=== PATIENT | female | born 1945 | race Caucasian/White ===

== ENCOUNTER 2017-01-07 15:43 | Observation (INO) | payer OTHER ==
[~2017-01-07] VITALS: Ht 170.2 cm; Wt 63.5 kg
[2017-01-07 19:15] VITALS: BP 147/84; PULSE 76; TEMP 36.6; O2SAT 99
[2017-01-07] MEDS ORDERED: POLYETHYLENE (MIRALAX) 17 GM PACK PO PRN (21:00)
[2017-01-07] MEDS ORDERED: ONDANSETRON INJ 2 MG/ML 2 ML VIAL IV PRN (21:00)
--- NOTE | 2017-01-07 21:07 | History and Physical ---
History & Physical Date & Time of Service: Jan 07, 2017 at 21:04 Chief Complaint: Hypoglycemia, Weight Loss Primary Care Physician: Lana Gregg History of Present Illness Source: patient 71-year-old female with a past medical history of diabetes mellitus, arthritis, hypothyroidism status post thyroidectomy, status post gastric bypass surgery presented to the hospital via a direct admit for persistent hypoglycemia. Per patient she had been feeling weak and has not been able to maintain her blood sugar for a few weeks. She had not been using her medication but had noticed that her blood sugars had been dropping. She stated that her blood sugars were in the range of 20s to 30s on some occasions at which time she felt shaky, had blurry vision and was diaphoretic. This would resolve on drinking juice or Soda. She stated that she had occasions when her blood sugar had dropped to 15 or lower. She states that she hadn't been eating much due to a lack of appetite and has been nibbling on fruit sporadically throughout the day. At the outside hospital her blood sugar was 42, magnesium was 1.4, alk phosphatase was 165, TSH was 0.11 Past Medical/Surgical History Past medical history: Diabetes, incontinence, arthritis, hypothyroidism Past surgical history: Appendectomy, cholecystectomy, hysterectomy, gastric bypass Social History Housing status: lives alone Allergies Coded Allergies: Adhesives (Verified Allergy, Intermediate, RASH, 01/07/17) Iodine (Verified Allergy, Intermediate, RASH, 01/07/17) Home Medications Scheduled Cyanocobalamin (Vitamin B-12 1000 Mcg), 1,000 MCG IM DIRECTED Cyclobenzaprine Hcl (Flexeril), 5 MG PO TID Ergocalciferol (Vitamin D 76229 Unit), 1 TAB PO WK Esomeprazole Magnesium (Nexium), 40 MG PO DAILY Furosemide (Lasix), 20 MG PO DAILY Levothyroxine Sodium (Levothyroxine Sodium), 1 TAB PO DAILY Montelukast Sodium (Montelukast Sodium), 1 TAB PO DAILY Nortriptyline (Pamelor), 150 MG PO HS Propranolol Hcl (Propranolol Hcl Er), 1.5 CAP PO HS Ranitidine Hcl (Ranitidine Hcl), 1 CAP PO DAILY Tolterodine Tartrate (Detrol LA), 1 CAP PO DAILY Scheduled PRN Carisoprodol (Soma), 1 TAB PO TID PRN for Pain Review of Systems Constitutional: No fever, No chills ENT: No hearing loss Respiratory: No cough, No sputum, No shortness of breath Cardiovascular: No chest pain Abdomen: No pain, No nausea, No vomiting, No diarrhea Genitourinary - Female: No dysuria, No urinary frequency, No urinary urgency Neurologic: No memory loss, No paralysis Physical Exam Vital Signs Date Time Temp Pulse Resp B/P (MAP) Pulse Ox O2 Delivery O2 Flow Rate FiO2 01/07/17 19:15 36.6 76 18 147/84 (105) 99 Room Air General Appearance: WD/WN, no apparent distress Head: normocephalic Eyes: normal inspection ENT: hearing grossly normal Neck: supple Respiratory/Chest: chest non-tender, lungs clear, normal breath sounds, no respiratory distress, no accessory muscle use Cardiovascular: regular rate, rhythm, no murmur Abdomen/GI: normal bowel sounds, non tender, soft Neurologic/Psych: alert, normal mood/affect, oriented x 3 Skin: + pertinent finding (generalized tanning from tanning beds) Diagnostics Laboratory Results Results Past 24 Hours Test 01/07/17 20:01 Range/Units Bedside Glucose 44 70-90 mg/dl Impression Assessment and Plan 71-year-old female with a past medical history of diabetes mellitus, arthritis, hypothyroidism status post thyroidectomy, status post gastric bypass surgery presented to the hospital via a direct admit for persistent hypoglycemia. It is very likely her hypoglycemia is secondary to decreased oral intake however her blood sugar keeps dropping sporadically Persistent hypoglycemia: Decreased by mouth intake vs endogenous hyperinsulinism vs glipizide side effect vs islet cell hyperplasia post gastric bypass - Blood sugar on arrival 44 -->157-->119-->100-->96 - Hold metformin and glipizide - Monitor blood sugars every 1-2 hours and start D5W if persistently low - Check hemoglobin A1c GERD: - Continue Nexium and ranitidine Hypothyroidism - Continue Synthroid Incontinence: - Continue Detrol Insomnia: - Continue nortriptyline Migraine headaches: - Propranolol as needed DO NOT RESUSCITATE DVT prophylaxis: Heparin subcutaneous Disposition: Monitor blood sugars Resident Physician Supervision Note: Pt seen/examined independently. I discussed the case with the resident and agree with the findings and plan as documented in the note. Any exceptions or clarifications are listed here: 71 y/o F CAD, DM presents from [place] - transferred due to hypoglycemia - recurred on arrival to [facility] Pt has a history of gastric bypass - recent decreased PO intake - Glipizide use OE AAO x 3 S1,2 R CTAB NT, ND, BS+ No CCE P: POC Q1h - D50 as needed IVF w/Glu Consider D/C of Glipizide going forward - should f/u with primary Documented By: Haim Marmolejo Level of Care Telemetry Resuscitation Status DO NOT RESUSCITATE VTE Prophylaxis VTE Risk Assessment Done? Y/N: Yes Risk Level: Moderate Given or contraindicated: Unfractionated heparin SQ Resident Tracking Resident Involvement: Resident Care Provided Care Provided: Adult Hospital Medicine
[2017-01-07] MEDS ORDERED: PATIENT'S ALLERGY INFO NEEDS ENTERED SCH (21:15)
[2017-01-07] MEDS ORDERED: IV FLUIDS COMPLETED PRN (21:30)
[2017-01-07] MEDS ORDERED: PROP80CA PO (21:55)
[2017-01-07] MEDS ORDERED: ERGO500011 PO (21:55)
[2017-01-07] MEDS ORDERED: NORT50CA PO (21:55)
[2017-01-07] MEDS ORDERED: CARI350T27 PO (21:55)
[2017-01-07] MEDS ORDERED: NXM/40 PO (21:55)
[2017-01-07] MEDS ORDERED: CYAN10004 IM (21:55)
[2017-01-07] MEDS ORDERED: CYCL5TAB PO (21:55)
[2017-01-07] MEDS ORDERED: RANI150C4 PO (21:55)
[2017-01-07] MEDS ORDERED: DTRSR4 PO (21:55)
[2017-01-07] MEDS ORDERED: FURO20TA PO (21:55)
[2017-01-07] MEDS ORDERED: LEVO150T9 PO (21:55)
[2017-01-07] MEDS ORDERED: MONT1TAB5 PO (21:55)
[2017-01-07 22:01] LABS: ALT/SGPT 21 U/L (12-78); BLOOD UREA NITROGEN 11 mg/dl (7-18); BUN/CREATININE RATIO 8.8 (10-20); CARBON DIOXIDE 24 mmol/L (21-32); CHLORIDE 104 mmol/L (98-107); GLUCOSE 157 mg/dl (70-99); MAGNESIUM 1.9 mg/dl (1.8-2.4); POTASSIUM 3.9 mmol/L (3.5-5.1); SODIUM 139 mmol/L (136-145)
[2017-01-07 22:02] VITALS: BP 147/84; PULSE 76; TEMP 36.6; O2SAT 99; BMI 20.5
[2017-01-07 22:04] LABS: ALB/GLOB RATIO 0.5 (0.9-2); ALKALINE PHOSPHATASE 164 U/L (45-117); AST/SGOT 17 U/L (15-37)
[2017-01-07 22:11] LABS: HEMATOCRIT 35.5 % (37-47); MEAN CELL VOLUME 80.7 fL (80-100); MEAN CORPUSCULAR HEMOGLOBIN 25.2 pg (25-34); MEAN CORPUSCULAR HGB CONC 31.3 g/dl (32-36); MEAN PLATELET VOLUME 9.9 fL (7.4-10.4); PLATELET COUNT 359 K/uL (130-400); WHITE BLOOD COUNT 10.75 K/uL (4.8-10.8)
[2017-01-07 22:18] LABS: CALCIUM 8.1 mg/dl (8.5-10.1)
[2017-01-07 23:10] VITALS: BP 122/83; PULSE 88; TEMP 36.5; O2SAT 98
[2017-01-07 23:36] LABS: INR 1.1 (0.9-1.1); PROTHROMBIN TIME (PATIENT) 11.4 SECONDS (9.0-12.0)
[2017-01-08] MEDS ORDERED: PROPRANOLOL HCL 60 MG LA CAP PO ONE (00:59)
[2017-01-08] MEDS ORDERED: NORTRIPTYLINE HCL 25 MG CAP PO ONE (00:59)
[2017-01-08] MEDS ORDERED: CARISOPRODOL 350 MG TAB PO PRN (01:00)
[2017-01-08 04:13] VITALS: BP 123/77; PULSE 80; TEMP 36.7; O2SAT 98
[2017-01-08] MEDS: DEXTROSE 5% 1000ML 1,000 ML IV SCH ×2 (05:02→18:37)
[2017-01-08] MEDS: LEVOTHYROXINE 150 MCG TAB PO SCH (06:11)
[2017-01-08] MEDS: HEPARIN SOD 5000 UNIT/0.5 ML CARP SQ SCH ×3 (06:16→21:06)
[2017-01-08 06:42] LABS: BASO % 0.3 %; BASO ABS # 0.02 K/uL (0-0.2); COMPLETE YES; EOS % 1.7 %; HEMATOCRIT 30.1 % (37-47); IG% 0.4 %; LYMPH % 29.5 %; LYMPH ABS # 2.27 K/uL (1.2-3.4); MEAN CELL VOLUME 81.4 fL (80-100); MEAN CORPUSCULAR HEMOGLOBIN 25.1 pg (25-34); MEAN CORPUSCULAR HGB CONC 30.9 g/dl (32-36); MEAN PLATELET VOLUME 10.2 fL (7.4-10.4); MONO % 11.2 %; NEUT % 56.9 %; PLATELET COUNT 298 K/uL (130-400); WHITE BLOOD COUNT 7.69 K/uL (4.8-10.8)
[2017-01-08 06:52] LABS: BUN/CREATININE RATIO 11.6 (10-20); CALCIUM 7.7 mg/dl (8.5-10.1); CREATININE 1.1 mg/dl (0.60-1.20); MAGNESIUM 1.9 mg/dl (1.8-2.4)
[2017-01-08 07:05] LABS: ALB/GLOB RATIO 0.6 (0.9-2)
[2017-01-08] MEDS: TOLTERODINE TARTRATE LA 4 MG CAPCR PO SCH (08:09)
[2017-01-08] MEDS: MONTELUKAST SOD 10 MG TAB PO SCH (08:09)
[2017-01-08] MEDS: RANITIDINE HCL 150 MG TAB PO SCH (08:09)
[2017-01-08] MEDS: FUROSEMIDE 20 MG TAB PO SCH (08:10)
[2017-01-08] MEDS: PANTOprazole SOD 40 MG TAB PO SCH (08:10)
[2017-01-08 08:23] VITALS: BP 124/76; PULSE 79; TEMP 36.7; O2SAT 99
[2017-01-08] MEDS: ACETAMINOPHEN 325 MG TAB PO PRN (10:05)
[2017-01-08 11:59] VITALS: BP 114/73; PULSE 69; TEMP 36.3; O2SAT 100
--- NOTE | 2017-01-08 13:25 | Hospitalist Progress Note ---
Hospitalist Progress Note Date of Service Jan 08, 2017. (Liz Kim PA-C) Subjective Pt evaluation today including: conversation w/ patient, physical exam, chart review, lab review, review of studies, review of inpatient medication list Pain: Denies PO Intake: Poor Voiding: no voiding problems Patient seen and evaluated. Continues to have fluctuating glucose readings. Had long discussion on current routine of intake/medications... Patient is on Glipizide (unknown dose/unknown short acting vs long) in AM and Metformin 500 mg at night but has not taken these medications x 1 month due to low sugars and continues to have sugars that can drop to 15-30 range. Lowest sugars commonly in AM. She reports she keeps cake icing at bedside because she has difficulty opening food when she has low sugars and has shaking hands. She reports her common hypoglycemic symptoms are shakiness, generalized weakness, diffuse diaphoresis, and blurred vision. She does report poor oral intake reporting taking small meals "cup-fulls" multiple times a day. Reporting breakfast is normally a piece of toast and an egg. States her son is concerned that she is not eating because of fear of weight gain as she was 400+ lbs prior to gastric bypass in 2007. Prior to bypass she was on insulin pump but when she lost the majority of her weight this was no longer needed. She does report an associated weight loss of approx. 20 lbs x 2 months and noticeable muscle wasting She does express that she is concerned for weight gain but does not feel that she doesn't eat because of this but is mindful. She reports she lives alone and does not feel like making large meals and just snack. She has noticed over the past month she has had lower extremity weakness. She states she fell 2 weeks ago getting out of bed in the AM and fell on her bottom and needed the fire department to come and help her up as she did not have upper body strength from shaking and her sugars were low. She denies saddle paresthesias or loss bowel/bladder function but reports intermittent chronic incontinence. She is unable to lift leg off the bed (flexion of hip) but can slowly slide her leg up the bed to bend the knee. She reports that she needs to use her hands to lift and move her legs off the side of the bed to move. Of note, patient is extremely tanned but does report tanning bed use 3-4 times a month with last tanning in October. She denies acute changes in coloration of her skin. Denies known adrenal insufficiency. Constitutional: + weight loss (20 lbs x 2 months), + weakness, + fatigue, No fever, No chills Eyes: + problem reported (blurred vision (yesterday - resolved)) ENT: No nasal symptoms, No sore throat, No trouble swallowing Respiratory: No cough, No shortness of breath Cardiovascular: No chest pain Abdomen: No pain, No nausea, No vomiting, No diarrhea, No constipation, No GI bleeding Musculoskeletal: + joint pain (chronic upper back pain), No swelling, No calf pain Female : No dysuria Neurologic: + weakness (bilateral lower extremity) Endo: + fatigue (Liz Kim, GURWINDER) Medications Current Inpatient Medications Medications (Trade) Dose Ordered Sig/Bernardo Route Start Time Stop Time Status Last Admin Dose Admin Heparin Sodium (Porcine) (Heparin Sq 5000 Unit/0.5ml) 5,000 unit Q8 SQ 01/08/17 06:00 02/07/17 05:59 01/08/17 13:40 5,000 UNIT Acetaminophen (Tylenol Tab) 650 mg Q4H PRN PO 01/07/17 21:00 02/06/17 20:59 01/08/17 10:05 650 MG Ondansetron HCl (Zofran Inj) 4 mg Q6H PRN IV 01/07/17 21:00 02/06/17 20:59 Polyethylene (Miralax Powder Packet) 17 gm DAILY PRN PO 01/07/17 21:00 02/06/17 20:59 Miscellaneous (Iv Fluids Completed) 1 ea PRN PRN N/A 01/07/17 21:30 01/07/18 21:29 Carisoprodol (Soma Tab) 350 mg TID PRN PO 01/08/17 01:00 02/07/17 00:59 Furosemide (Lasix Tab) 20 mg DAILY PO 01/08/17 09:00 02/07/17 08:59 01/08/17 08:10 20 MG Levothyroxine Sodium (Synthroid Tab) 150 mcg DAILYBB PO 01/08/17 06:30 02/07/17 06:29 01/08/17 06:11 150 MCG Montelukast Sodium (Singulair Tab) 10 mg DAILY PO 01/08/17 09:00 02/07/17 08:59 01/08/17 08:09 10 MG Nortriptyline HCl (Pamelor Cap) 150 mg HS PO 01/08/17 21:00 02/07/17 20:59 Propranolol HCl (Inderal La Cap) 120 mg HS PO 01/08/17 21:00 02/07/17 20:59 Tolterodine Tartrate (Detrol LA Cap) 4 mg DAILY PO 01/08/17 09:00 02/07/17 08:59 01/08/17 08:09 4 MG Pantoprazole Sodium (Protonix Tab) 40 mg QAM PO 01/08/17 09:00 02/07/17 08:59 01/08/17 08:10 40 MG Ranitidine HCl (zANTac TAB) 150 mg DAILY PO 01/08/17 09:00 02/07/17 08:59 01/08/17 08:09 150 MG Dextrose 1,000 ml @ 75 mls/hr [id number] IV 01/08/17 04:45 02/07/17 04:44 01/08/17 05:02 75 MLS/HR (Liz Kim, PA-C) Objective Vital Signs Date Time Temp Pulse Resp B/P (MAP) Pulse Ox O2 Delivery O2 Flow Rate FiO2 01/08/17 12:30 Room Air 01/08/17 11:59 36.3 69 16 114/73 (87) 100 01/08/17 08:30 Room Air 01/08/17 08:23 36.7 79 16 124/76 (92) 99 01/08/17 04:13 36.7 80 18 123/77 (92) 98 Room Air 01/08/17 04:00 Room Air 01/08/17 00:00 Room Air 01/07/17 23:10 36.5 88 20 122/83 (96) 98 01/07/17 22:02 36.6 76 18 147/84 99 Room Air 01/07/17 19:15 36.6 76 18 147/84 (105) 99 Room Air (Liz Kim PA-C) Physical Exam General Appearance: no apparent distress, + pertinent finding (muscle wasting of extremities bilateral/upper and lower) Eyes: PERRL, EOMI, sclerae normal ENT: hearing grossly normal Neck: supple, no JVD, trachea midline Respiratory/Chest: lungs clear, normal breath sounds, no respiratory distress, no accessory muscle use Cardiovascular: regular rate, rhythm, no gallop, no murmur Abdomen: normal bowel sounds, non tender, soft Extremities: no pedal edema, no calf tenderness Neurologic/Psychiatric: alert, oriented x 3, + motor weakness (flexion of hip diminished bilat; reduced ability to flex at knees bilat; normal dorsiflexion/ plantarflexion bilat; minimal achilles reflex (likely due to poor positioning)) Skin: warm/dry, + pertinent finding (dark/tanned skin) (Liz Kim, GURWINDER) Laboratory Results Last 24 Hours Test 01/07/17 20:01 01/07/17 21:36 01/07/17 21:45 01/07/17 23:32 Bedside Glucose 44 mg/dl 119 mg/dl 100 mg/dl White Blood Count 10.75 K/uL Red Blood Count 4.40 M/uL Hemoglobin 11.1 g/dL Hematocrit 35.5 % Mean Corpuscular Volume 80.7 fL Mean Corpuscular Hemoglobin 25.2 pg Mean Corpuscular Hemoglobin Concent 31.3 g/dl RDW Standard Deviation 43.6 fL RDW Coefficient of Variation 15.0 % Platelet Count 359 K/uL Mean Platelet Volume 9.9 fL Prothrombin Time 11.4 SECONDS Prothromb Time International Ratio 1.1 Sodium Level 139 mmol/L Potassium Level 3.9 mmol/L Chloride Level 104 mmol/L Carbon Dioxide Level 24 mmol/L Anion Gap 11.0 mmol/L Blood Urea Nitrogen 11 mg/dl Creatinine 1.30 mg/dl Estimated GFR () 48.1 Estimated GFR (Non- 41.5 BUN/Creatinine Ratio 8.8 Random Glucose 157 mg/dl Calcium Level 8.1 mg/dl Phosphorus Level 3.0 mg/dl Magnesium Level 1.9 mg/dl Total Bilirubin 0.2 mg/dl Aspartate Amino Transf (AST/SGOT) 17 U/L Alanine Aminotransferase (ALT/SGPT) 21 U/L Alkaline Phosphatase 164 U/L Total Protein 6.6 gm/dl Albumin 2.3 gm/dl Globulin 4.3 gm/dl Albumin/Globulin Ratio 0.5 Test 01/08/17 02:06 01/08/17 04:19 01/08/17 05:41 01/08/17 06:10 Bedside Glucose 96 mg/dl 82 mg/dl 100 mg/dl White Blood Count 7.69 K/uL Red Blood Count 3.70 M/uL Hemoglobin 9.3 g/dL Hematocrit 30.1 % Mean Corpuscular Volume 81.4 fL Mean Corpuscular Hemoglobin 25.1 pg Mean Corpuscular Hemoglobin Concent 30.9 g/dl Platelet Count 298 K/uL Mean Platelet Volume 10.2 fL Neutrophils (%) (Auto) 56.9 % Lymphocytes (%) (Auto) 29.5 % Monocytes (%) (Auto) 11.2 % Eosinophils (%) (Auto) 1.7 % Basophils (%) (Auto) 0.3 % Neutrophils # (Auto) 4.38 K/uL Lymphocytes # (Auto) 2.27 K/uL Monocytes # (Auto) 0.86 K/uL Eosinophils # (Auto) 0.13 K/uL Basophils # (Auto) 0.02 K/uL RDW Standard Deviation 44.1 fL RDW Coefficient of Variation 15.1 % Immature Granulocyte % (Auto) 0.4 % Immature Granulocyte # (Auto) 0.03 K/uL Sodium Level 143 mmol/L Potassium Level 4.0 mmol/L Chloride Level 107 mmol/L Carbon Dioxide Level 27 mmol/L Anion Gap 9.0 mmol/L Blood Urea Nitrogen 13 mg/dl Creatinine 1.10 mg/dl Est Creatinine Clear Calc Drug Dose 44.6 ml/min Estimated GFR () 58.9 Estimated GFR (Non- 50.8 BUN/Creatinine Ratio 11.6 Random Glucose 94 mg/dl Calcium Level 7.7 mg/dl Magnesium Level 1.9 mg/dl Total Bilirubin 0.2 mg/dl Aspartate Amino Transf (AST/SGOT) 13 U/L Alanine Aminotransferase (ALT/SGPT) 15 U/L Alkaline Phosphatase 131 U/L Total Protein 5.3 gm/dl Albumin 1.9 gm/dl Globulin 3.4 gm/dl Albumin/Globulin Ratio 0.6 Test 01/08/17 07:42 01/08/17 09:55 01/08/17 12:10 Bedside Glucose 124 mg/dl 155 mg/dl 113 mg/dl (Liz Kim, PAJennC) Assessment and Plan Ms. Landry is a 71 y/o female with PMHx of T2DM, Arthritis, Hypothyroidism S/ P Thyroidectomy, S/P Gastric Bypass (2007) who presents for persistent hypoglycemia. Direct admission from [facility] Persistent/Resistant Hypoglycemia: Decreased Oral Intake vs Insulinoma vs Bypass Hypoglycemia vs Andrei's/Adrenal Insuff? - Off oral agents x 1 month and continues to be hypoglycemic - has improved with D5W infusion - Stop oral anti-diabetics - metformin and glipizide - monitor BSG Q2H at this time - Albumin is 1.9 - will obtain pre-albumin level - HbA1c - pending - AM Cortisol, ACTH, Cosyntropin Stim test in AM, C-peptide - ordered for further evaluation - D5W at 75 mL/hr - Consult endocrinology - left message with provider - will await call back Hypothyroidism S/P Thyroidectomy: - TSH obtained 0.77 and will run free T4 - Await labs but plan to decrease Synthroid from current dose of 150 mcg - long standing supratherapeutic dose contributing? GERD: - Protonix 40 mg daily and Ranitidine 150 mg daily Headaches: - Propranolol 120 mg daily Incontinence: - Detrol 4 mg daily DVT Prophylaxis: Heparin 5000 units SC Q8H Code Status: DO NOT RESUSCITATE Disposition: - Multiple labs pending to R/O a Addisons/Adrenal Insuff - PT/OT evaluations - patient lives alone Continued [facility] stay due to: multiple IV medications needed Discharge planning: uncertain (Liz Kim PA-C) Reviewed: Pt Seen/Exam by Me (Hortencia Celeste MD) History Physician Online Marketing Coordinator Supervision Note: I interviewed and examined the patient. Discussed with TESSA Kim and agree with findings and plan as documented in the note. Any exceptions or clarifications are listed here: Pt endorses progressive weakness and worsening hypoglycemia over the last 1-2 months. Severe fatigue as well. Her skin is very tanned but she reports going to the tanning bed last in September or October, but also uses drafter seismograph lotion. Vitals reviewed NAD, very weak, cannot sit up in bed on her own accord RRR no mgr CTAB breathing unlabored Abd +BS soft NT ND Ext no edema Skin dark brown al lover but does have a white stripe across the back where her bra is while tanning-this skin is white 71 yo female with a h/o anemia from B12 and Fe-def, gastric bypass, DMII, here with profound preogressively worsening hypoglycemia and weakness. -r/o adrenal insufficiency -continue D5W gtt and q2h glucose checks -check cosyntropin stim and AM fasting cortisol -may need to lower Sythroid dose -need to touch base with Endocrine tomorrow -DVT proph w/ heparin Documented By: Hortencia Celeste (Hortencia Celeste MD)
[2017-01-08] MEDS ORDERED: COSYNTROPIN INJ 0.25 MCG in SYRINGE 4 ML IV ONE (13:45)
[2017-01-08 16:19] VITALS: BP 126/86; PULSE 66; TEMP 36.4; O2SAT 100
[2017-01-08 19:56] VITALS: BP 129/76; PULSE 76; TEMP 36.9; O2SAT 96
[2017-01-08] MEDS: PROPRANOLOL HCL 60 MG LA CAP PO SCH (21:06)
[2017-01-08] MEDS: NORTRIPTYLINE HCL 25 MG CAP PO SCH (21:07)
[2017-01-09] VITALS (8 sets, daily range): BP systolic 91–137; BP diastolic 60–82; PULSE 61–85; TEMP 36.5–37; O2SAT 97–99; Ht 170.2 cm; Wt 63.5 kg
[2017-01-09] MEDS: LEVOTHYROXINE 150 MCG TAB PO SCH (05:34)
[2017-01-09] MEDS: HEPARIN SOD 5000 UNIT/0.5 ML CARP SQ SCH ×3 (05:34→20:39)
[2017-01-09] MEDS ORDERED: COSYNTROPIN INJ 1 MCG in SYRINGE 0 ML IV SCH (06:00)
[2017-01-09] MEDS: DEXTROSE 5% 1000ML 1,000 ML IV SCH (06:06)
[2017-01-09 07:03] LABS: ESTIMATED AVERAGE GLUCOSE 131 mg/dl; HA1C FLAG Normal (Normal)
[2017-01-09] MEDS ORDERED: COSYNTROPIN IM SCH (08:00)
[2017-01-09 08:26] LABS: BASO % 0.7 %; BASO ABS # 0.05 K/uL (0-0.2); COMPLETE YES; EOS % 1.3 %; HEMATOCRIT 31.7 % (37-47); IG% 0.3 %; LYMPH % 32.6 %; LYMPH ABS # 2.23 K/uL (1.2-3.4); MEAN CELL VOLUME 81.7 fL (80-100); MEAN CORPUSCULAR HGB CONC 30.6 g/dl (32-36); MEAN PLATELET VOLUME 9.8 fL (7.4-10.4); MONO % 8.8 %; NEUT % 56.3 %; PLATELET COUNT 270 K/uL (130-400); RED BLOOD COUNT 3.88 M/uL (4.2-5.4); WHITE BLOOD COUNT 6.85 K/uL (4.8-10.8)
[2017-01-09 08:41] LABS: BUN/CREATININE RATIO 8.2 (10-20); CREATININE 1.1 mg/dl (0.60-1.20); MAGNESIUM 1.8 mg/dl (1.8-2.4); POTASSIUM 4.2 mmol/L (3.5-5.1)
[2017-01-09 08:44] LABS: ALB/GLOB RATIO 0.6 (0.9-2); FERRITIN 27.6 ng/ml (8.0-388.0)
[2017-01-09 09:02] LABS: CALCIUM 8.1 mg/dl (8.5-10.1)
[2017-01-09] MEDS: PANTOprazole SOD 40 MG TAB PO SCH (09:21)
[2017-01-09] MEDS: MULTIVITAMIN TAB PO SCH (09:21)
[2017-01-09] MEDS: MONTELUKAST SOD 10 MG TAB PO SCH (09:22)
[2017-01-09] MEDS: TOLTERODINE TARTRATE LA 4 MG CAPCR PO SCH (09:22)
[2017-01-09] MEDS: FUROSEMIDE 20 MG TAB PO SCH (09:22)
[2017-01-09] MEDS: RANITIDINE HCL 150 MG TAB PO SCH (09:22)
--- NOTE | 2017-01-09 18:19 | Progress Note ---
Subjective Date of Service: Jan 09, 2017. Subjective Pt evaluation today including: conversation w/ patient, physical exam, chart review, lab review, conversation w/ consultant rn, review of inpatient medication list feeling better d/w dr alvarado suggests NPO and follow glucoses she notes she's feeling OK right now but notes that she's been struggling with lows so much over the last month ntoes feeling weak and tired ROS otherwise negative except for as above Review of Systems ROS otherwise negative except for as above Objective Vital Signs Date Time Temp Pulse Resp B/P (MAP) Pulse Ox O2 Delivery O2 Flow Rate FiO2 01/09/17 16:16 36.7 85 16 137/80 (99) 98 Room Air 01/09/17 12:00 36.6 75 18 107/67 (80) 98 01/09/17 10:31 76 97 01/09/17 08:20 36.5 66 16 121/82 (95) 97 01/09/17 07:40 Room Air 01/09/17 04:22 Room Air 01/09/17 04:00 36.8 61 20 121/79 (93) 99 Room Air 01/09/17 00:28 37.0 73 18 111/67 (82) 98 Room Air 01/09/17 00:03 Room Air 01/08/17 20:00 Room Air 01/08/17 19:56 36.9 76 18 129/76 (93) 96 Room Air Physical Exam General Appearance: no apparent distress Eyes: EOMI ENT: hearing grossly normal Neck: trachea midline Respiratory/Chest: no respiratory distress, no accessory muscle use Neurologic/Psychiatric: data analyst [id number] nml as tested, alert Skin: normal color (tubbs), warm/dry Laboratory Results Last 24 Hours Test 01/08/17 18:23 01/08/17 20:12 01/08/17 22:01 01/09/17 00:14 Bedside Glucose 234 mg/dl 144 mg/dl 116 mg/dl 114 mg/dl Test 01/09/17 02:13 01/09/17 04:10 01/09/17 06:03 01/09/17 08:00 Bedside Glucose 113 mg/dl 117 mg/dl 120 mg/dl White Blood Count 6.85 K/uL Red Blood Count 3.88 M/uL Hemoglobin 9.7 g/dL Hematocrit 31.7 % Mean Corpuscular Volume 81.7 fL Mean Corpuscular Hemoglobin 25.0 pg Mean Corpuscular Hemoglobin Concent 30.6 g/dl Platelet Count 270 K/uL Mean Platelet Volume 9.8 fL Neutrophils (%) (Auto) 56.3 % Lymphocytes (%) (Auto) 32.6 % Monocytes (%) (Auto) 8.8 % Eosinophils (%) (Auto) 1.3 % Basophils (%) (Auto) 0.7 % Neutrophils # (Auto) 3.86 K/uL Lymphocytes # (Auto) 2.23 K/uL Monocytes # (Auto) 0.60 K/uL Eosinophils # (Auto) 0.09 K/uL Basophils # (Auto) 0.05 K/uL RDW Standard Deviation 44.9 fL RDW Coefficient of Variation 15.3 % Immature Granulocyte % (Auto) 0.3 % Immature Granulocyte # (Auto) 0.02 K/uL Sodium Level 141 mmol/L Potassium Level 4.2 mmol/L Chloride Level 106 mmol/L Carbon Dioxide Level 27 mmol/L Anion Gap 8.0 mmol/L Blood Urea Nitrogen 9 mg/dl Creatinine 1.10 mg/dl Est Creatinine Clear Calc Drug Dose 44.3 ml/min Estimated GFR () 58.9 Estimated GFR (Non- 50.8 BUN/Creatinine Ratio 8.2 Random Glucose 122 mg/dl Calcium Level 8.1 mg/dl Magnesium Level 1.8 mg/dl Iron Level 54 mcg/dl Total Iron Binding Capacity 180 mcg/dl Transferrin 140 mg/dl Transferrin % Saturation 28 % Ferritin 27.6 ng/ml Total Bilirubin 0.2 mg/dl Aspartate Amino Transf (AST/SGOT) 30 U/L Alanine Aminotransferase (ALT/SGPT) 22 U/L Alkaline Phosphatase 133 U/L Total Protein 5.6 gm/dl Albumin 2.0 gm/dl Globulin 3.6 gm/dl Albumin/Globulin Ratio 0.6 Prealbumin 14.6 mg/dl Vitamin B12 Level 516 pg/mL Folate 9.01 ng/mL Cortisol Response to Stimulation Cortisol Baseline Test 01/09/17 08:14 01/09/17 17:16 Bedside Glucose 113 mg/dl 114 mg/dl Assessment and Plan Persistent/Resistant Hypoglycemia: Decreased Oral Intake vs Insulinoma vs Bypass Hypoglycemia vs Ipava's/Adrenal Insuff? - most likely post bypass + poor PO intake + poor reserve; however, d/w endocrine and recommended NPO / follow glucoses / if low then check serum glucose and insulin levels stat -- will do so until tomorrow AM - if doing OK otherwise hopefully home tomorrow - cosyntropin stim OK Hypothyroidism S/P Thyroidectomy: - TSH obtained 0.77, free T4 OK - but suspect slightly iatrogenic hyperthyroid - reduce from 150 to 137mcg, follow up labs ~6wks GERD: - Protonix 40 mg daily and Ranitidine 150 mg daily Headaches: - Propranolol 120 mg daily Incontinence: - Detrol 4 mg daily DVT Prophylaxis: Heparin 5000 units SC Q8H Code Status: DO NOT RESUSCITATE anticipate home tomorrow after overnight fast and follow glucoses per endocrine recs Continued [facility] stay due to: multiple IV medications needed Discharge planning: uncertain
[2017-01-09] MEDS: NORTRIPTYLINE HCL 25 MG CAP PO SCH (20:33)
[2017-01-09] MEDS: PROPRANOLOL HCL 60 MG LA CAP PO SCH (20:33)
[2017-01-09] MEDS ORDERED: ZOLPIDEM TARTRATE 5 MG TAB PO PRN (21:15)
[2017-01-10] VITALS (8 sets, daily range): BP systolic 106–126; BP diastolic 69–84; PULSE 70–73; TEMP 36.5–36.7; O2SAT 96–99
[2017-01-10] MEDS: HEPARIN SOD 5000 UNIT/0.5 ML CARP SQ SCH ×2 (06:14→13:35)
[2017-01-10 06:17] LABS: BASO % 0.4 %; BASO ABS # 0.03 K/uL (0-0.2); COMPLETE YES; EOS % 1.9 %; HEMATOCRIT 29.5 % (37-47); IG% 0.4 %; LYMPH ABS # 2.77 K/uL (1.2-3.4); MEAN CELL VOLUME 79.9 fL (80-100); MEAN CORPUSCULAR HEMOGLOBIN 24.9 pg (25-34); MEAN CORPUSCULAR HGB CONC 31.2 g/dl (32-36); MEAN PLATELET VOLUME 9.9 fL (7.4-10.4); MONO % 9.2 %; NEUT % 52.1 %; PLATELET COUNT 233 K/uL (130-400); RED BLOOD COUNT 3.69 M/uL (4.2-5.4)
[2017-01-10] MEDS ORDERED: LEVOTHYROXINE 137 MCG TAB PO SCH (06:30)
[2017-01-10 06:58] LABS: BUN/CREATININE RATIO 15.6 (10-20); CALCIUM 7.9 mg/dl (8.5-10.1); POTASSIUM 4.3 mmol/L (3.5-5.1)
[2017-01-10 07:00] LABS: ALB/GLOB RATIO 0.6 (0.9-2)
[2017-01-10] MEDS: RANITIDINE HCL 150 MG TAB PO SCH (08:39)
[2017-01-10] MEDS: PANTOprazole SOD 40 MG TAB PO SCH (08:39)
[2017-01-10] MEDS: MULTIVITAMIN TAB PO SCH (08:39)
[2017-01-10] MEDS: MONTELUKAST SOD 10 MG TAB PO SCH (08:40)
[2017-01-10] MEDS: TOLTERODINE TARTRATE LA 4 MG CAPCR PO SCH (08:40)
[2017-01-10] MEDS: FUROSEMIDE 20 MG TAB PO SCH (08:40)
[2017-01-10] MEDS ORDERED: CYANOCOBALAMIN 500 MCG TAB (VIT B-12) PO SCH (09:00)
[2017-01-10] MEDS ORDERED: SYN137 PO (09:37)
--- NOTE | 2017-01-10 09:44 | Discharge Instructions ---
Discharge Instructions Date of Service Jan 10, 2017. Admission Reason for Admission: Hypoglycemia, Weight Loss Discharge Discharge Diagnosis / Problem: low sugars (from inadequte oral intake) Discharge Goals Goal(s): Increase independence, Improve disease control, Diagnostic testing Activity Recommendations Activity Limitations: resume your previous activity . Instructions / Follow-Up Instructions / Follow-Up it appears that your low sugars were mostly caused by not taking in enough nutrition each day. when you don't eat enough, your body "runs on empty" really similar to trying to make a car go without any gas. when you don't take in enough, your body has no storage of extra glucose, so sugars drop. what we saw was that once we "put gas in the tank" (had you eat reasonably for a day or so) you no longer had low sugars ---for reference, a calorie is a unit of energy, there's about 3500 calories in a pound, to gain weight you'd take in more calories than you burn; to lose weight you'd burn more than you take in. quick math would calculate that you burn about 1300 calories in a day, meaning that unless you're taking in at least that much you'll continue to lose weight. my guess based on your diet history is that you were probably taking in somewhere around 700-1000 calories a day at the most, explaining why you were losing ground with weight loss and low sugars. Dr Eduardo will be able to really refine this, and guide you further, but until you get in with her, my "poor man's math" is a workable starting point ---make sure you get in enough food each day --> whether you eat enough or if you really don't feel like cooking/making food, at least taking in a boost/ ensure will get about 220 calories to help you take in more. also consider making a HUGE meal every few days and dividing it up, so you don't have to cook all that often, but still have enough food around. ---stop the sugar meds entirely - with an A1c of 6.2, you clearly don't need them anymore. ---your TSH was a little low, suggesting that your synthroid dose was a tiny bit high - while not the "whole story" certainly having a little too much synthroid in your system would contribute to the weight loss and low sugars even more --- we've reduced the dose to 137mcg daily; have a repeat TSH checked in about 6 weeks --we'll work on getting you in with [facility] to follow up on the sugar and thyroid issues, and with Dr Eduardo to give you much more expert guidance nutritionally Current Hospital Diet Patient's current hospital diet: Regular Diet Discharge Diet Recommended Diet: Regular Diet Pending Studies Studies pending at discharge: no Laboratory Results Hemoglobin A1c Test 01/08/17 05:41 Range/Units Estimated Average Glucose 131 mg/dl Hemoglobin A1c 6.2 H 4.5-5.6 % Medical Emergencies . Who to Call and When: Medical Emergencies: If at any time you feel your situation is an emergency, please call 911 immediately. . Non-Emergent Contact Non-Emergency issues call your: Primary Care Provider, Specialist . . "Provider Documentation" section prepared by Gustavo Acosta. . VTE Core Measure Inpt VTE Proph given/why not?: Unfractionated heparin SQ
--- NOTE | 2017-01-10 13:03 | Discharge Summary ---
Discharge Summary Date of Service Jan 10, 2017. Discharge Summary Admission Date: Jan 07, 2017 at 19:31 Discharge Date: Jan 10, 2017 Principal Diagnosis: hypoglycemia and weight loss likely due to poor PO intake Procedures: cosyntropin stim appearing normal Item Value Date Time Hemoglobin 9.2 g/dL L 01/10/17 0600 White Blood Count 7.70 K/uL 01/10/17 0600 Platelet Count 233 K/uL 01/10/17 0600 Sodium Level 142 mmol/L 01/10/17 0600 Chloride Level 108 mmol/L H 01/10/17 0600 Potassium Level 4.3 mmol/L 01/10/17 0600 Carbon Dioxide Level 25 mmol/L 01/10/17 0600 Blood Urea Nitrogen 16 mg/dl # 01/10/17 0600 Creatinine 1.00 mg/dl 01/10/17 0600 Random Glucose 115 mg/dl H 01/10/17 0600 Calcium Level 7.9 mg/dl L 01/10/17 0600 Total Protein 5.6 gm/dl L 01/10/17 0600 Albumin 2.0 gm/dl L 01/10/17 0600 Vitamin B12 Level 516 pg/mL 01/09/17 0800 Folate 9.01 ng/mL 01/09/17 0800 Prealbumin 14.6 mg/dl L 01/09/17 0800 Thyroid Stimulating Hormone (TSH) 0.077 uIu/ml L 01/08/17 0541 Free Thyroxine 1.33 ng/dl 01/08/17 0541 Iron Level 54 mcg/dl 01/09/17 0800 Total Iron Binding Capacity 180 mcg/dl L 01/09/17 0800 Transferrin 140 mg/dl L 01/09/17 0800 Transferrin % Saturation 28 % 01/09/17 0800 Ferritin 27.6 ng/ml 01/09/17 0800 Hemoglobin A1c 6.2 % H 01/08/17 0541 Cortisol Baseline [id number] 20.51 01/09/17 0800 Cortisol Response to ACTH 1/2 Hour [id number] 27.13 01/09/17 0800 Cortisol Response to ACTH 1 Hour [id number] 26.70 01/09/17 0800 Consultations: discussions with endocrinology, pt to see as outpt Medication Reconciliation New Medications: Levothyroxine Sodium (Levothyroxine Sodium) 137 Mcg Tab 137 MCG PO DAILYBB, #30 TAB Continued Medications: Carisoprodol (Soma) 350 Mg Tab 1 TAB PO TID PRN for Pain for 30 Days, #90 TAB Cyanocobalamin (Vitamin B-12 1000 Mcg) 1,000 Mcg Tab 1000 MCG IM DIRECTED Cyclobenzaprine Hcl (Flexeril) 5 Mg Tab 5 MG PO TID, TAB PRN Ergocalciferol (Vitamin D 64536 Unit) 50,000 Unit Cap 1 TAB PO WK, CAP Esomeprazole Magnesium (Nexium) 40 Mg Cap 40 MG PO DAILY, CAP Furosemide (Lasix) 20 Mg Tab 20 MG PO DAILY, TAB Montelukast Sodium (Montelukast Sodium) 10 Mg Tab 1 TAB PO DAILY for 30 Days, #30 TAB 5 Refills Nortriptyline (Pamelor) 50 Mg Cap 150 MG PO HS, CAP Propranolol Hcl (Propranolol Hcl Er) 80 Mg Cap 1.5 CAP PO HS for 90 Days, CAP 1 Refill Ranitidine Hcl (Ranitidine Hcl) 150 Mg Cap 1 CAP PO DAILY for 30 Days, #30 CAP 5 Refills Tolterodine Tartrate (Detrol LA) 4 Mg Capcr 1 CAP PO DAILY for 90 Days, #90 CAP 1 Refill Discontinued Medications: Levothyroxine Sodium (Levothyroxine Sodium) 150 Mcg Tab 1 TAB PO DAILY for 30 Days, #30 TAB 5 Refills Hospital Course Persistent/Resistant Hypoglycemia: Decreased Oral Intake vs Insulinoma vs Bypass Hypoglycemia vs [place]'s/Adrenal Insuff? - most likely post bypass + poor PO intake + poor reserve; however, d/w endocrine and recommended NPO / follow glucoses / if low then check serum glucose and insulin levels stat -- but actually never got lower than 115 while inpt NPO - seems to have improved with better PO intake, discussed in detail and appears pt not eating well / enough at all routinely at home -- discussed strategies and measures, will also refer to Dr Jayce pollard for home - cosyntropin stim OK, TSH sl low suggesting iatrogenic hyperthyroid may also play a small role Hypothyroidism S/P Thyroidectomy: - TSH obtained 0.77, free T4 OK - but suspect slightly iatrogenic hyperthyroid - reduced from 150 to 137mcg, follow up labs ~6wks GERD: - Protonix 40 mg daily and Ranitidine 150 mg daily Headaches: - Propranolol 120 mg daily Incontinence: - Detrol 4 mg daily DVT Prophylaxis: Heparin 5000 units SC Q8H utilized while here Code Status: DO NOT RESUSCITATE stable for home Total Time Spent: Greater than 30 minutes This includes examination of the patient, discharge planning, medication reconciliation, and communication with other providers. Discharge Instructions Please refer to the electronic Patient Visit Report (Discharge Instructions) for additional information. Additional Copies To Fanny Witt M.D.; Cathie Eduardo M.D.
[2017-01-10] MEDS: ACETAMINOPHEN 325 MG TAB PO PRN (15:08)
[2017-01-13] MEDS ORDERED: ERGOCALCIFEROL 50,000 INTER.UNIT CAP PO SCH (09:00)
== END 2017-01-10 18:19 | disposition home or self-care (01) ==
LOC: INTOOBSV 19:31 → C.MED 19:31
PROVIDERS: ADMIT Family Medicine; ATTEND Family Medicine
DX: E11.649 Type 2 diabetes mellitus with hypoglycemia without coma (principal); R63.4 Abnormal weight loss; E89.0 Postprocedural hypothyroidism; K21.9 Gastro-esophageal reflux disease without esophagitis; I25.10 Atherosclerotic heart disease of native coronary artery without angina pectoris; E53.8 Deficiency of other specified B group vitamins; D50.9 Iron deficiency anemia, unspecified; R51 Headache; R32 Unspecified urinary incontinence; Z66 Do not resuscitate; Z98.84 Bariatric surgery status; Z90.49 Acquired absence of other specified parts of digestive tract; Z90.710 Acquired absence of both cervix and uterus